=== PATIENT | male | born 1980 | race Caucasian/White ===

== ENCOUNTER 2017-09-05 09:18 | Emergency (ER) | payer OTHER, SELFPAY ==
[2017-09-05 09:40] VITALS: BP 141/78; PULSE 72; RESP 13; TEMP 36.6; O2SAT 100
--- NOTE | 2017-09-05 10:07 | ED.ABDPAIN ---
HPI - Abdominal Pain General Chief Complaint: Abdominal Pain Stated Complaint: DEHYDRATION Time Seen by Provider: 09/05/17 10:02 Source: patient and RN notes reviewed Mode of arrival: ambulatory Limitations: no limitations History of Present Illness HPI narrative: Patient is a 36-year-old male who presents with a abdominal discomfort and vomiting since 840 this morning. He just got back after [place]. He denies any fever or chills. Last night he was not feeling great. However he vomited about 7 times this morning he has had a couple episodes of loose diarrhea. No fever or chills. MD complaint: abdominal pain and other (Vomiting) Onset (ago): hour(s) (2) Related Data Previous Rx's Medication Instructions Recorded ondansetron [Zofran ODT] 4 mg PO Q6H PRN #10 tab 09/05/17 Allergies Allergy/AdvReac Type Severity Reaction Status Date / Time No Known Drug Allergies Allergy Unverified 08/15/17 13:39 Review of Systems Review of Systems All systems reviewed & are unremarkable except as noted in HPI and below Constitutional Denies chills, Denies fever(s), Denies lethargy and Denies weakness Cardiovascular Denies dyspnea and Denies dyspnea on exertion Respiratory Denies cough, Denies dyspnea, Denies dyspnea on exertion and Denies wheezing Gastrointestinal Gastrointestinal: Reports as per HPI and Reports system reviewed and no additional complaints, except as docu Integumentary/Breasts Denies pruritus, Denies erythema, Denies rash and Denies wounds Neurologic Denies weakness Allergic/Immunologic Denies wheezing [facility], [facility] Social History Smoking Status: Current every day smoker Exam Initial Vital Signs Initial Vital Signs: Vital Signs Temperature 98 F 09/05/17 09:40 Pulse Rate 72 09/05/17 09:40 Respiratory Rate 13 09/05/17 09:40 Blood Pressure 141/78 H 09/05/17 09:40 Pulse Oximetry 100 09/05/17 09:40 GENERAL: Well-appearing, well-nourished and in no acute distress. HEENT: Head atraumatic,EOMI, pupils reactive, face symmetric, moist mucous membranes CARDIOVASCULAR: Regular rate and rhythm without murmurs, rubs or gallops. RESPIRATORY: Breath sounds equal bilaterally, no wheezes rales or rhonchi. ABDOMEN: Soft, nontender. Normoactive bowel sounds all 4 quadrants. No guarding or rebound. : No CVA tenderness EXTREMITIES: Normal range of motion, no clubbing or edema. Neurovascularly intact NEUROLOGICAL: Alert and oriented x4.Normal gait and speech. Cranial nerves II through XII grossly intact. SKIN: Warm, dry, no laceration, no petechiae, no rashes or lesions. Course Orders Ordered: ED Orders 09/05/17 10:55 Complete Blood Count AUTO DIFF Stat Comprehensive Metabolic Panel Stat Lipase Stat Sodium Chloride (Normal Saline 0.9%) 1,000 mls @ 1,000 mls/hr IV CONT MEGAN Last Admin: 09/05/17 11:09 Dose: 1,000 mls/hr Discontinued Medications Ondansetron HCl (Zofran) 4 mg IV NOW ONE Stop: 09/05/17 10:13 Last Admin: 09/05/17 11:09 Dose: 4 mg Pantoprazole Sodium (Protonix) 40 mg IV NOW ONE Stop: 09/05/17 10:13 Last Admin: 09/05/17 11:09 Dose: 40 mg Vital Signs - 8 hr 09/05/17 09:40 Temperature 98 F Pulse Rate 72 Respiratory Rate 13 Blood Pressure 141/78 H Pulse Oximetry 100 MDM - Abdominal Pain Lab Data Result diagrams: 09/05/17 10:55 09/05/17 10:55 Lab Results 09/05/17 09/05/17 Range/Units 10:55 10:55 WBC 11.6 H (4.5-11.0) X10^3/uL RBC 5.48 (4.5-5.9) X10^6/uL Hgb 16.6 (13.5-17.5) g/dL Hct 45.9 (41-53) % MCV 83.7 (80-100) fL MCH 30.3 (26-34) PG MCHC 36.1 H (30-36) % RDW 13.0 (11.6-14.8) % Plt Count 250 (150-400) X10^3/uL Neut % (Auto) 85.1 H (50-75) % Lymph % (Auto) 8.7 L (25-40) % [place] % (Auto) 4.4 (3-14) % Eos % (Auto) 1.5 L (2-4) % Baso % (Auto) 0.3 (0-2) % Neut # (Auto) 9800 H (7435-8930) /uL Sodium 139 (137-145) mmol/L Potassium 4.6 (3.4-5.1) mmol/L Chloride 104 (98-107) mmol/L Carbon Dioxide 18 L (22-32) mmol/L BUN 22 H (9-20) mg/dL Creatinine 0.70 (0.66-1.25) mg/dL Estimated GFR > 60.0 (>60) mL/min BUN/Creatinine Ratio 31.4 H (6-22) Glucose 107 H (70-100) mg/dL Calcium 9.7 (8.4-10.2) mg/dL Total Bilirubin 1.1 (0.2-1.3) mg/dL AST 31 (17-59) IU/L ALT 51 (21-72) IU/L Alkaline Phosphatase 99 (38-126) U/L Total Protein 8.0 (6.3-8.2) g/dL Albumin 4.8 (3.5-5.0) g/dL Globulin 3.2 (1.7-4.1) g/dL Albumin/Globulin Ratio 1.5 (1.0-2.8) Lipase 55 (23-300) U/L MDM Narrative Medical decision making narrative: Patient is tolerating oral fluids. Discussed oral rehydration techniques Discharge Plan Departure Patient Disposition: Home, Self-Care Clinical Impression: Gastroenteritis Instructions: DI for Viral Gastroenteritis -- Adult Activity Restrictions/Additional Instructions: 1) You have been diagnosed with gastroenteritis 2) What to do: Drink frequent but small amounts of fluids. I recommend Gatorade or a Gatorade-like product, as it has small amounts of sugar and salts that improve fluid retention. 3) Take medications as directed 4) Follow up with your primary care provider in 2-3 days 5) Return to ER if you should have any new or worsening symptoms such as, unable to hold down fluids despite use of anti-nausea medications and the small volume oral rehydration strategy. Prescriptions: New ondansetron [Zofran ODT] 4 mg tablet,disintegrating 4 mg PO Q6H PRN (Reason: nausea and vomiting) Qty: 10 RF: 0 Referrals: Mireille Aleman DO [Primary Care Provider] -
[2017-09-05 11:06] LABS: Add Manual Diff / Slide Review NO; Basophils Percent Auto 0.3 % (0-2); Eosinophils Percent Auto 1.5 % (2-4); Hematocrit 45.9 % (41-53); Hemoglobin 16.6 g/dL (13.5-17.5); Lymphocytes Percent Auto 8.7 % (25-40); Mean Corpuscular HGB Conc 36.1 % (30-36); Mean Corpuscular Hemoglobin 30.3 PG (26-34); Mean Corpuscular Volume 83.7 fL (80-100); Monocytes Percent Auto 4.4 % (3-14); Neutrophils Absolute Auto 9800 /uL (3000-5900); Neutrophils Percent Auto 85.1 % (50-75); Platelet Count 250 X10^3/uL (150-400); Red Blood Cell Count 5.48 X10^6/uL (4.5-5.9); White Blood Cell Count 11.6 X10^3/uL (4.5-11.0)
[2017-09-05] MEDS: PANTOPRAZOLE 40 MG VIAL IV (11:09)
[2017-09-05] MEDS: ONDANSETRON 4 MG/2 ML INJ IV (11:09)
[2017-09-05] MEDS: SODIUM CHLORIDE 0.9% 1,000 ML 1000 ML IV (11:09)
[2017-09-05 11:16] LABS: Alanine Aminotransferase 51 IU/L (21-72); Albumin 4.8 g/dL (3.5-5.0); Albumin Globulin Ratio 1.5 (1.0-2.8); Alkaline Phosphatase 99 U/L (38-126); Aspartate Aminotransferase 31 IU/L (17-59); BUN Creatinine Ratio 31.4 (6-22); Bilirubin Total 1.1 mg/dL (0.2-1.3); Blood Urea Nitrogen 22 mg/dL (9-20); Calcium 9.7 mg/dL (8.4-10.2); Carbon Dioxide 18 mmol/L (22-32); Chloride 104 mmol/L (98-107); Estimated Glomerular Filt Rate > 60.0 mL/min (>60); Globulin 3.2 g/dL (1.7-4.1); Glucose 107 mg/dL (70-100); HEMOLYSIS 18 (0-50); Lipase 55 U/L (23-300); Potassium 4.6 mmol/L (3.4-5.1); Sodium 139 mmol/L (137-145)
[2017-09-05 12:33] VITALS: BP 139/76; PULSE 78; RESP 16; TEMP 36.4; O2SAT 100
== END 2017-09-05 12:33 | disposition home or self-care (01) ==
PROVIDERS: Emergency Provider Emergency Medicine; PCP Family Medicine
DX: K52.9 Noninfective gastroenteritis and colitis, unspecified (principal)
CPT/HCPCS: 36591; 80053; 83690; 85025; 96361; 96374; 96375; 99283; 99284; C9113; J2405

== ENCOUNTER 2020-01-11 16:59 | Emergency (ER) | payer OTHER, SELFPAY ==
[2020-01-11 17:02] VITALS: BP 160/88; PULSE 89; RESP 14; O2SAT 99; BMI 27.1
[2020-01-11] MEDS: PROPARACAINE 0.5% OPHTH SOL 1 DROPS EYE-LEFT (17:38)
[2020-01-11] MEDS: FLUORESCEIN 1 MG STRIP EYE-BOTH (17:39)
[2020-01-11] MEDS: FLUORESCEIN 1 MG STRIP (17:40)
--- NOTE | 2020-01-11 17:43 | PC.NURSE ---
MD AT BEDSIDE PERFORMING EYE EXAM
--- NOTE | 2020-01-11 17:51 | ED.EYEPROB ---
HPI - Eye Problem General Chief complaint: Eye Problems Stated complaint: carb film cleaner in left eye, thinks cut as well Time Seen by Provider: 01/11/20 17:09 Source: patient Mode of arrival: Ambulatory Limitations: no limitations History of Present Illness HPI Narrative: Patient is a 39-year-old male who presents with left eye pain. At 10:00 a.m. this morning at home he got checked spray gum out carburetor film cleaner sprayed into his eye. He immediately washed out for 20 minutes with water and then went to walk-in clinic. He was instructed to go directly to the ER unfortunately he went to [facility] and bought normal saline for contacts. He said he is about half the bottle and came to the ER cassette is still quite painful. He also thinks he may have a cut in his eye. MD chief complaint: eye pain and eye injury Related Data Previous Rx's Medication Instructions Recorded ondansetron [Zofran ODT] 4 mg PO Q6H PRN #10 tab 09/05/17 Allergies Allergy/AdvReac Type Severity Reaction Status Date / Time No Known Drug Allergies Allergy Verified 01/11/20 17:07 Review of Systems Review of Systems Narrative: GENERAL: Denies chills,fever HEENT: See HPI RESPIRATORY: Denies dyspnea, cough, wheezing CARDIOVASCULAR: Denies chest pain, palpitations GASTROINTESTINAL: Denies nausea, vomiting MUSCULOSKELETAL: Denies extremity pain, injury SKIN: No rash, no laceration, no pruritus NEUROLOGIC: Denies weakness, dizziness, headache, numbness 8 point review of systems is negative except for those stated above and HPI Patient History Medical History Patient denies medical problems (Acute) Social History Smoking Status: Unknown if ever smoked Smoking Status: Unknown if ever smoked alcohol intake frequency: a few times a week Substance Use Type: marijuana Exam Initial Vital Signs Initial Vital Signs: Vital Signs Pulse Rate 89 01/11/20 17:02 Respiratory Rate 14 01/11/20 17:02 Blood Pressure 160/88 H 01/11/20 17:02 Pulse Oximetry 99 01/11/20 17:02 GENERAL: Well-appearing, well-nourished and in no acute distress. EYES: Left eye was treated with proparacaine, stained with fluorescein. No dye uptake. No foreign body. I was evaluated under slit lamp exam no dye uptake and no eye laceration noted. Patient initially thought that there was a laceration of left medial on the corner by the tear duct however do not put appreciate any laceration. CARDIOVASCULAR: peripheral pulses in tact, cap refill <2 sec RESPIRATORY: No respiratory distress, speaks in full sentences without difficulty EXTREMITIES: Normal range of motion, no clubbing or edema. Neurovascularly intact NEUROLOGICAL: Cranial nerves II through XII grossly intact. Normal gait and speech. SKIN: Warm, dry, no petechiae, no rashes or lesions. Course Orders Ordered: Discontinued Medications Erythromycin (Erythromycin Ophth Oint) 1 applic EYE-BOTH NOW ONE Stop: 01/11/20 17:49 Last Admin: 01/11/20 18:06 Dose: 1 applic Documented by: SAROJ Fluorescein Sodium (Ful-Shannon) 1 mg EYE-BOTH NOW ONE Stop: 01/11/20 17:32 Last Admin: 01/11/20 17:39 Dose: 1 mg Documented by: SAROJ Proparacaine HCl (Parcaine 0.5% Ophth Urvashi) 1 drops EYE-LEFT NOW ONE Stop: 01/11/20 17:20 Last Admin: 01/11/20 17:38 Dose: 1 drops Documented by: SAROJ Vital Signs Vital signs: Vital Signs - 8 hr 01/11/20 17:02 Pulse Rate 89 Respiratory Rate 14 Blood Pressure 160/88 H Pulse Oximetry 99 MDM - Eye Problem MDM Narrative Medical decision making narrative: Poison control contacted. Chemical has loss of acetone and some tall yelling both are irritants. Be sure that patient flushed eye out 15 minutes or more stain eye with fluorescein. Okay to give antibiotic ointment for comfort if needed or there is corneal abrasion. Corneal abrasion is not present however it is given for comfort if needed. Patient's eye was examined under both with lamp and slit lamp no dye uptake no laceration is appreciated in the eye Discharge Plan Departure Patient Disposition: Home Clinical Impression: Chemical injury of eye Discharge Date/Time: 01/11/20 18:08 Instructions: DI for Chemical Eye Burn Activity Restrictions/Additional Instructions: *You have been diagnosed with a chemical burn left eye *What to do: Your eye is going to be irritated for a couple of days. May be sensitive to light, be sure to wear sunglasses. However at this time there is no corneal abrasion or laceration to the eye itself *Continue to take medications as directed Erythromycin ointment every 4 hours while awake if needed for comfort Ibuprofen 800 mg every 8 hours as needed for pain *Follow up with your primary care provider in 2-3 days If no improvement over the next 3 days you may require ophthalmology evaluation *Return to ER if you should have worsening pain, loss of vision, or any new, worsening or concerning symptoms Prescriptions: No Action ondansetron [Zofran ODT] 4 mg tablet,disintegrating 4 mg PO Q6H PRN (Reason: nausea and vomiting) Qty: 10 RF: 0 Referrals: Alessia Gerardo MD [Physician] - Pardeep Silva MD [Physician] - Mireille Aleman DO [Primary Care Provider] -
[2020-01-11] MEDS: ERYTHROMYCIN OPHTH 1 GM OINT 1 APPLIC EYE-BOTH (18:06)
== END 2020-01-11 18:08 | disposition home or self-care (01) ==
PROVIDERS: Emergency Provider Emergency Medicine; PCP Family Medicine
DX: T26.92XA Corrosion of left eye and adnexa, part unspecified, initial encounter (principal)
CPT/HCPCS: 99282

== ENCOUNTER → 2020-02-21 12:17 | Outpatient (CLI) | payer OTHER, SELFPAY ==
--- NOTE | 2020-02-21 12:19 | DI.RAD.S_ITS ---
PROCEDURE: XR CHEST 2V INDICATIONS: chest pain one week TECHNIQUE: 2 views of the chest were acquired. COMPARISON: None. FINDINGS: Surgical changes and devices: None. Lungs and pleura: Lungs are clear. No pleural effusions or pneumothorax. Mediastinum: Mediastinal contours are normal. Heart size is normal. Bones and chest wall: No suspicious bony abnormalities. Soft tissues appear unremarkable. IMPRESSION: No source for chest pain identified. Dictated by: Pascual Cunningham [facility] Interpreted: Noe Tucker MD on 02/21/2020 at 13:11 Approved by: Noe Tucker M.D. on 02/21/2020 at 14:42
[2020-02-21 14:08] LABS: Add Manual Diff / Slide Review NO; Basophils Absolute Auto 0 /uL (0-100); Basophils Percent Auto 0.5 % (0-2); Eosinophils Absolute Auto 0 /uL (0-450); Eosinophils Percent Auto 0.6 % (2-4); Hematocrit 43.8 % (41-53); Hemoglobin 15.3 g/dL (13.5-17.5); Lymphocytes Absolute Auto 2500 /uL (1100-4500); Lymphocytes Percent Auto 43.6 % (25-40); Mean Corpuscular HGB Conc 34.8 % (30-36); Mean Corpuscular Hemoglobin 29.9 PG (26-34); Monocytes Absolute Auto 400 /uL (0-900); Monocytes Percent Auto 6.4 % (3-14); Neutrophils Absolute Auto 2800 /uL (1500-7000); Neutrophils Percent Auto 48.9 % (50-75); Platelet Count 262 X10^3/uL (150-400); Red Cell Distribution Width 13.4 % (11.6-14.8); White Blood Cell Count 5.7 X10^3/uL (4.5-11.0)
[2020-02-21 15:12] LABS: Alanine Aminotransferase 49 IU/L (<50); Albumin 5.1 g/dL (3.5-5.0); Albumin Globulin Ratio 1.6 (1.0-2.8); Alkaline Phosphatase 112 U/L (38-126); Aspartate Aminotransferase 36 IU/L (17-59); Bilirubin Total 1.2 mg/dL (0.2-1.3); Blood Urea Nitrogen 15 mg/dL (9-20); Carbon Dioxide 29 mmol/L (22-32); Chloride 103 mmol/L (98-107); Cholesterol 264 mg/dL (140-199); Estimated Glomerular Filt Rate > 60.0 mL/min (>60); Globulin 3.2 g/dL (1.7-4.1); Glucose 96 mg/dL (70-100); HDL Cholesterol 51 mg/dL (40-60); HEMOLYSIS < 15 (0-50); LDL Cholesterol Calculated 193 mg/dL (<100); Potassium 4.1 mmol/L (3.4-5.1); Sodium 138 mmol/L (137-145); Total Protein 8.3 g/dL (6.3-8.2); Triglycerides 99 mg/dL (35-150)
== END ==
PROVIDERS: PCP Family Medicine; Referring Provider Family Medicine; Visit Provider Family Medicine
DX: R07.9 Chest pain, unspecified (principal)
CPT/HCPCS: 36415; 71046; 80053; 80061; 85025

== ENCOUNTER → 2020-03-03 06:49 | Outpatient (CLI) | payer OTHER, SELFPAY ==
--- NOTE | 2020-03-03 06:50 | DI.ECHO.S_ITS ---
[facility] +---------+ : : [address] : [place] : : : : [id number] : : : : Phone: [phone]+ Echocardiogram Report + + :Name: WOODROW HANSON Study Date: 03/03/2020 Height: 72 in : :[facility] Weight: 197 lb : : Gender: Male BSA: 2.1 m2 : :: 1980 Age: 39 yrs BP: 148/96 mmHg: :Reason For Study: ABNORMAL EKG, OLD INFARCT ON ECHO : :Ordering Physician: MARGY, : :ROXANNE Performed By: Destini Vega : :Referring: ROXANNE JI : + + Interpretation Summary The ejection fraction is estimated to be 55-60%. Septal motion is consistent with conduction abnormality. There is no significant valvular heart disease. Procedure: A two-dimensional transthoracic echocardiogram with color flow and Doppler was performed. The study quality was technically adequate. There is no prior echocardiogram noted for this patient. The patient was in sinus bradycardia with heart rates between 57-84 bpm during the exam. Left Ventricle: The left ventricle is normal in size and wall thickness. The ejection fraction is estimated to be 55-60%. Septal motion is consistent with conduction abnormality. Diastolic parameters suggest probable normal left ventricular diastolic function and normal filling pressures. Right Ventricle: The right ventricle is normal in size and function. Atria: Both atria are normal in size. There is no Doppler evidence for an interatrial shunt. Mitral Valve: The mitral valve is normal in structure and function. There is trace mitral regurgitation. Aortic Valve: The aortic valve is trileaflet. The aortic valve opens well. There is no aortic valve stenosis. No aortic regurgitation is present. Tricuspid Valve: The tricuspid valve is normal in structure and function. The right ventricular systolic pressure is estimated to be at least 20 mmHg based on an estimated right atrial pressure of 3 mm Hg. There is trace tricuspid regurgitation. Pulmonic Valve: The pulmonic valve leaflets are thin and pliable; valve motion is normal. There is no pulmonic valvular regurgitation. Great Vessels: The aortic root is normal size. The ascending aorta is mildly enlarged. The IVC is of normal diameter and collapses greater than 50% with a sniff. This suggests a low right atrial pressure of 3 mm Hg. Pericardium/ Pleura There is no pericardial effusion. There is no pleural effusion. MMode/2D Measurements & Calculations LVIDd: 5.3 cm LVOT diam: 2.3 cm LVIDs: 3.5 cm Ao root diam: 3.1 cm FS: 34.4 % asc Aorta Diam: 3.5 cm EPSS: 0.72 cm Ao Arch Diam (Prox Trans): 2.5 cm IVSd: 1.1 cm LVPWd: 0.73 cm LV shirley. diameter/BSA (cm/m^2): 2.5 LV sys. diameter/BSA (cm/m^2): 1.6 LA A2 area: 23.5 cm2 RA long axis: 4.7 cm LA A4 area: 16.2 cm2 RA area: 16.4 cm2 LA length (vol): 5.3 cm RA vol: 48.8 ml LA vol: 60.8 ml RA : 23.1 ml/m2 LA vol index: 28.7 ml/m2 IVC diam: 1.8 cm RVD1 (basal): 4.0 cm TAPSE: 2.3 cm Doppler Measurements & Calculations Ao V2 max: 147.4 cm/sec LVOT Max Boo: 133.4 cm/sec Ao V2 mean: 95.8 cm/sec LV V1 max P.1 mmHg Ao max P.7 mmHg LV V1 VTI: 25.9 cm Ao mean P.3 mmHg HATTIE(I,D): 3.8 cm2 Ao V2 VTI: 28.4 cm HATTIE(V,D): 3.7 cm2 sev ratio: 0.91 HATTIE indexed to BSA (cm^2/m^2): 1.8 MV E max boo: 66.7 cm/sec TR max boo: 206.1 cm/sec MV A max boo: 44.9 cm/sec TR max P.0 mmHg MV E/A: 1.5 PA V2 max: 73.9 cm/sec Med Peak E' Boo: 16.6 cm/sec PA V2 mean: 46.4 cm/sec E/E' med: 4.0 PA mean P.0 mmHg Lat Peak E' Boo: 18.8 cm/sec PA pr(Accel): 10.5 mmHg E/E' lat: 3.6 E/e' average: 3.8 MV dec time: 0.19 sec SV(LVOT): 106.7 ml Reading Physician:09:48 AM
== END ==
PROVIDERS: PCP Family Medicine; Referring Provider Family Medicine; Visit Provider Family Medicine
DX: R94.31 Abnormal electrocardiogram [ECG] [EKG] (principal); I77.89 Other specified disorders of arteries and arterioles
CPT/HCPCS: 93306